=== PATIENT | male | born 2000 | race Caucasian/White ===

== ENCOUNTER 2024-01-03 05:26 | Emergency (ER) | payer BC ==
[~2024-01-03] VITALS: Ht 172.7 cm; Wt 61.2 kg
[2024-01-03 06:20] VITALS: BP 119/75; TEMP 98.5; O2SAT 99
== END 2024-01-03 06:58 | disposition home or self-care (01) ==
LOC: ER 05:29
DX: M25.531 Pain in right wrist (principal); Z60.2 Problems related to living alone; Y04.0XXA Assault by unarmed brawl or fight, initial encounter; Y93.89 Activity, other specified; Y92.89 Other specified places as the place of occurrence of the external cause; Y99.8 Other external cause status
CPT/HCPCS: 73100-TC